=== PATIENT | female | born 1995 | race Caucasian/White ===

== ENCOUNTER 2019-11-14 15:13 | Emergency (ER) | payer BC, MEDICAID ==
--- NOTE | 2019-11-14 15:22 | ER Document Report ---
ED Medical Screen (RME) - General Chief Complaint: Weakness Stated Complaint: WEAKNESS Time Seen by Provider: 11/14/19 15:19 Mode of Arrival: Ambulatory Information source: Patient Notes: Patient is a 24-year-old female with past medical history of asthma presenting to the emergency department with concerns that she may have had a seizure this morning. Patient reports she was sitting on the couch when she felt a pinch in her back and all of a sudden started shaking. She maintained consciousness through this event. She states now she feels very weak. She has no history of seizures. She does report a family history of seizures and called her doctor who advised her To come to the emergency room for labs. Patient is alert, oriented, no focal neurological deficits noted. I have greeted and performed a rapid initial assessment of this patient. A comprehensive ED assessment and evaluation of the patient, analysis of test results and completion of the medical decision making process will be conducted by additional ED providers. I have specifically instructed the patient or family members with the patient to immediately return to any nursing staff should anything change in the patient's condition or with their chief complaint. TRAVEL OUTSIDE OF THE [place] IN LAST 30 DAYS: No - Related Data Allergies/Adverse Reactions: No Known Allergies Allergy (Verified 05/24/15 17:41) Past Medical History Pulmonary Medical History: Reports: Hx Asthma - exercise asthma - Immunizations Immunizations up to date: Yes Hx Diphtheria, Pertussis, Tetanus Vaccination: Yes
[2019-11-14 16:15] LABS: ABSOLUTE LYMPHOCYTES (AUTO) 2.2 10^3/uL (0.5-4.7); ABSOLUTE MONOCYTES (AUTO) 0.4 10^3/uL (0.1-1.4); ABSOLUTE NEUT (AUTO) 3.9 10^3/uL (1.7-8.2); BASOPHILS % (AUTO) 0.4 % (0-2); EOSINOPHILS % (AUTO) 0.5 % (0-6); HEMATOCRIT 38.8 % (36.0-47.0); HEMOGLOBIN 13.6 g/dL (12.0-15.5); LYMPHOCYTES % (AUTO) 33.4 % (13-45); MEAN CORPUSCULAR HEMOGLOBIN 31.5 pg (27.0-33.4); MEAN CORPUSCULAR VOLUME 90 fl (80-97); MONOCYTES % (AUTO) 5.4 % (3-13); PLATELET COUNT 217 10^3/uL (150-450); RED BLOOD COUNT 4.32 10^6/uL (3.72-5.28); RED CELL DISTRIBUTION WIDTH 12.5 % (11.5-14.0); SEGMENTED NEUTROPHILS % (AUTO) 60.3 % (42-78); TOTAL CELLS COUNTED % (AUTO) 100 %; WHITE BLOOD COUNT 6.5 10^3/uL (4.0-10.5)
[2019-11-14 16:30] LABS: APPEARANCE,URINE SLIGHTLY-CLOUDY; BILIRUBIN,URINE NEGATIVE (NEGATIVE); COLOR,URINE YELLOW; GLUCOSE, URINE NEGATIVE (NEGATIVE); KETONES,URINE NEGATIVE (NEGATIVE); LEUKOCYTE ESTERASE,URINE TRACE (NEGATIVE); NITRITE,URINE NEGATIVE (NEGATIVE); PROTEIN,URINE NEGATIVE (NEGATIVE); URINE SPECIFIC GRAVITY 1.017; UROBILINOGEN,URINE NEGATIVE mg/dL (<2.0)
[2019-11-14 16:32] LABS: ALBUMIN 4.5 g/dL (3.5-5.0); ALKALINE PHOSPHATASE 70 U/L (38-126); ANION GAP 7 (5-19); ASPARTATE AMINO TRANSFERASE 39 U/L (14-36); BILIRUBIN,TOTAL 0.6 mg/dL (0.2-1.3); BLOOD UREA NITROGEN 16 mg/dL (7-20); CALCIUM 9.2 mg/dL (8.4-10.2); CARBON DIOXIDE 25 mmol/L (22-30); CHLORIDE 106 mmol/L (98-107); GLUCOSE 82 mg/dL (75-110); POTASSIUM 3.6 mmol/L (3.6-5.0); TOTAL PROTEIN 7.3 g/dL (6.3-8.2)
[2019-11-14 16:33] LABS: ALCOHOL < 10 mg/dL (NONE DETECTED)
[2019-11-14 16:41] LABS: URINE AMPHETAMINES SCREEN NEGATIVE; URINE BARBITURATES SCREEN NEGATIVE; URINE BENZODIAZEPINES SCREEN NEGATIVE; URINE COCAINE SCREEN NEGATIVE; URINE METHADONE SCREEN NEGATIVE; URINE PHENCYCLIDINE SCREEN NEGATIVE
[2019-11-14 16:46] LABS: URINE MARIJUANA (THC) SCREEN UNCONFIRMED POSITIVE
--- NOTE | 2019-11-14 16:48 | ER Document Report ---
ED Dizziness/Weakness - General Chief Complaint: Weakness Stated Complaint: WEAKNESS Time Seen by Provider: 11/14/19 15:19 Mode of Arrival: Ambulatory Notes: 24 y/o female with past medical history significant for asthma presents to the emergency room complaining of general weakness, Patient states she was sitting on her couch at home when she felt a pinching sensation to her back, then states she felt her body shaking and describes feeling "weird". Can't describe the feeling. States symptoms lasted for about a minute, denies LOC, no incontinence, no history of seizures. denies any new medications, no new foods, denies any illicit drug use ,states went to work and was sent to the emergency room for evaluation. TRAVEL OUTSIDE OF THE [place] IN LAST 30 DAYS: No - HPI Patient complains to provider of: Weakness Onset/Duration: Sudden - Related Data Allergies/Adverse Reactions: No Known Allergies Allergy (Verified 05/24/15 17:41) Past Medical History - General Information source: Patient - Social History Smoking Status: Never Smoker Frequency of alcohol use: Occasional Drug Abuse: None Lives with: Family Family History: Other - Aunt with seizure disorder Patient has suicidal ideation: No Patient has homicidal ideation: No - Past Medical History Cardiac Medical History: Reports: None Pulmonary Medical History: Reports: Hx Asthma - exercise asthma Neurological Medical History: Reports: None Endocrine Medical History: Reports: None Renal/ Medical History: Reports: None Musculoskeletal Medical History: Reports Other - History of chronic back pain secondary to surgery for spondylolisthesis - Immunizations Immunizations up to date: Yes Hx Diphtheria, Pertussis, Tetanus Vaccination: Yes Review of Systems - Review of Systems Constitutional: No symptoms reported EENT: No symptoms reported Cardiovascular: No symptoms reported Respiratory: No symptoms reported Gastrointestinal: No symptoms reported Genitourinary: No symptoms reported Musculoskeletal: No symptoms reported Skin: No symptoms reported Neurological/Psychological: Weakness, Tremor -: Yes All other systems reviewed and negative Physical Exam - Vital signs Vitals: Temp 99.3 F 11/14/19 15:19 - General General appearance: Appears well, Alert In distress: None - HEENT Head: Normocephalic, Atraumatic Eyes: Normal Pupils: PERRL - Respiratory Respiratory status: No respiratory distress Chest status: Nontender Breath sounds: Normal Chest palpation: Normal - Abdominal Inspection: Normal Distension: No distension Bowel sounds: Normal Tenderness: Nontender Organomegaly: No organomegaly - Back Back: Normal, Nontender - Extremities General upper extremity: Normal inspection, Nontender, Normal color, Normal ROM, Normal temperature General lower extremity: Normal inspection, Nontender, Normal color, Normal ROM, Normal temperature, Normal weight bearing. 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 No: Weakness Babinski reflex: Normal (flexor plantar) Sensory: Normal - Psychological Associated symptoms: Normal affect, Normal mood - Skin Skin Temperature: Warm Skin Moisture: Dry Skin Color: Normal Course - Re-evaluation Re-evalutation: 11/14/19 18:06 Patient is resting comfortably she is currently asymptomatic. She is neurovascularly and neurologically intact. Lab results were reviewed with patient. Discussed with patient that her urine drug screen was positive for marijuana, however she denies any use of marijuana today. States she uses it occasionally. Counseled patient on need to follow-up outpatient with her primary care physician. She was given strict return to the emergency room guidelines. Return for any new or worsening symptoms. All questions were answered. Patient verbalized understanding and agrees with plan of care. 11/15/19 00:23 11/15/19 00:27 - Vital Signs Vital signs: Temp Pulse Resp BP Pulse Ox 98 F 19 114/77 100 11/14/19 18:49 11/14/19 18:01 11/14/19 18:01 11/14/19 18:00 - Laboratory Result Diagrams: 11/14/19 15:55 11/14/19 15:55 Laboratory results interpreted by me: 11/14/19 11/14/19 15:55 15:55 AST 39 H ALT 45 H Urine Blood SMALL H Ur Leukocyte Esterase TRACE H Discharge - Discharge Clinical Impression: Weakness Condition: Good Disposition: HOME, SELF-CARE Instructions: Weakness (OM) Additional Instructions: Home, rest, follow-up primary care physician call for an appointment.
[2019-11-14 18:39] VITALS: BP 114/77
== END 2019-11-14 18:49 | disposition home or self-care (01) ==
LOC: ER 15:13
DX: R53.1 Weakness (principal)
CPT/HCPCS: 36415; 80053; 80307; 81001; 83735; 84703; 85025; 99284

== ENCOUNTER 2020-04-13 09:43 | Emergency (ER) | payer OTHER, BC, MEDICAID ==
[2020-04-13] MEDS ORDERED: IBUPROFEN 800 MG TABLET PO ONE (10:34)
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
[2020-04-13 12:23] VITALS: BP 118/69
== END 2020-04-13 12:23 | disposition home or self-care (01) ==
LOC: ER 09:43
DX: M54.6 Pain in thoracic spine (principal); M54.5 Low back pain; M54.2 Cervicalgia; V43.52XA Car driver injured in collision with other type car in traffic accident, initial encounter; Z98.890 Other specified postprocedural states; J45.909 Unspecified asthma, uncomplicated; Z79.3 Long term (current) use of hormonal contraceptives
CPT/HCPCS: 72050; 72070; 72110; 81025; 99284